=== PATIENT | male | born 1985 | race Two or more races ===

== ENCOUNTER 2018-12-11 13:41 | Emergency (ER) | payer MEDICAID ==
[2018-12-11] MEDS ORDERED: ACETAMINOPHEN 500 MG TAB PO ONE ×2 (13:55→14:00)
[2018-12-11 13:57] VITALS: BP 125/81
[2018-12-11] MEDS ORDERED: cefTRIAXone SOD 1,000 MG VL IM ONE (15:30)
== END 2018-12-11 16:16 | disposition home or self-care (01) ==
LOC: ER 13:50
DX: H66.92 Otitis media, unspecified, left ear (principal); J20.9 Acute bronchitis, unspecified
CPT/HCPCS: 71046; 96372; 99283; J0696

== ENCOUNTER 2021-03-09 10:47 | Emergency (ER) | payer MEDICAID ==
[~2021-03-09] VITALS: Ht 162.6 cm; Wt 78.9 kg
[2021-03-09 11:43] VITALS: BP 146/97
== END 2021-03-09 12:50 | disposition home or self-care (01) ==
LOC: ER 10:47
DX: S63.91XA Sprain of unspecified part of right wrist and hand, initial encounter (principal); M20.031 Swan-neck deformity of right finger(s); W18.39XA Other fall on same level, initial encounter; Y93.89 Activity, other specified; Y92.89 Other specified places as the place of occurrence of the external cause; Y99.8 Other external cause status
CPT/HCPCS: 29125; 73130